=== PATIENT | male | born 1965 | race Caucasian/White ===

== ENCOUNTER 2022-03-23 10:47 | Outpatient (CLI) | payer OTHER, SELFPAY ==
--- NOTE | 2022-03-23 11:30 | NEURO_ITS ---
Impression: # History of bilateral arm pain and ?locking up?, left worse than right. # Left ulnar neuropathy with slowing across the elbow. # Mild, evolving bilateral Carpal Tunnel Syndrome. # Normal needle/EMG exam. # Clinical correlation recommended. Motor Nerve Conduction Upper Extremities Median Nerve Conduction Velocity (m/sec) Terminal Latency (msec) Response Voltage(mV) Elbow-Wrist Wrist Elbow Wrist Right 53 3.5 6 7 Left 54 3.8 5 6 Ulnar Nerve Conduction Velocity (m/sec) Terminal Latency (msec) Response Voltage(mV) Above Elbow Below Elbow Wrist Above Elbow Below Elbow Wrist Right 51 57 3.1 2 2 3 Left 42 62 3.4 1 2 2 F-Wave Latency Median (ms) Ulnar (ms) Right 28.4 29.2 Left 34.8 35.3 Sensory Nerve Conduction Upper Extremities Median Nerve Stimulation Terminal Latency (msec) Wrist/Digit Response Voltage (uV) Wrist Right 4.1/4.4 14/12 Left 4.2/4.4 20/10 Ulnar Nerve Stimulation Terminal Latency (msec) Wrist/Digit Response Voltage (uV) Wrist Right 2.3 25 Left NR NR Radial Nerve Terminal Latency (msec) Response Voltage(mV) Right 2.0 25 Left 1.9 27 Left Right Muscles Examined Fibrillation Fasciculation Scarcity Voltage Duration Left Right Left Right Left Right Left Right Left Right Deltoid Biceps X X Brachioradialis Triceps X X Pronator Teres X X Ext Indicis X X Ext Digitorum X X Abd Poll Brev X X 1st Dorsal Interosseus Paraspinals MTDD
== END 2022-03-23 10:48 | disposition home or self-care (01) ==
LOC: ANHNEURO 10:50
PROVIDERS: Visit Provider Physician Assistant Surgical
DX: G56.22 Lesion of ulnar nerve, left upper limb (principal); G56.03 Carpal tunnel syndrome, bilateral upper limbs
CPT/HCPCS: 95886; 95911